=== PATIENT | male | born 1955 | race Caucasian/White ===

== ENCOUNTER 2019-10-20 11:32 | Outpatient (RCR) | payer BC ==
[~2019-10-20] VITALS: Ht 177.8 cm; Wt 100.9 kg
[2019-10-20 13:38] VITALS: BP 116/62
[2019-10-20] MEDS ORDERED: GUAI600T43 PO (13:46)
[2019-10-20] MEDS ORDERED: RT-ALBUINH IH (13:46)
[2019-10-20] MEDS ORDERED: DILT360C36 PO (13:46)
[2019-10-20] MEDS ORDERED: POTA10TA36 PO (13:46)
[2019-10-20] MEDS ORDERED: MONT10TA21 PO (13:46)
[2019-10-20] MEDS ORDERED: LOSA100T57 PO (13:46)
[2019-10-20] MEDS ORDERED: TIOT4MIS5 IH (13:46)
[2019-10-20] MEDS ORDERED: DOXA2TAB2 PO (13:46)
[2019-10-20] MEDS ORDERED: APIX2.5T PO (13:46)
[2019-10-20] MEDS ORDERED: FURO-124 PO (13:46)
[2019-10-20] MEDS ORDERED: BUDE10.2 IH (13:46)
[2019-10-20] MEDS ORDERED: FEXO-46 PO (13:46)
[2019-10-20] MEDS ORDERED: CYCL10TA9 PO (13:46)
[2019-10-20 14:03] LABS: BASOPHILS % (AUTO) 1 % (0-10); EOSINOPHILS % (AUTO) 0 % (0-10); HEMATOCRIT 42 % (40-54); HEMOGLOBIN 14.5 G/DL (13.3-17.7); LYMPHOCYTES # (AUTO) 1.3 X 10^3 (1.0-4.0); LYMPHOCYTES % (AUTO) 19 % (12-44); MEAN CORPUSCULAR HEMOGLOBIN 34 PG (25-34); MEAN CORPUSCULAR HGB CONC 35 G/DL (32-36); MEAN CORPUSCULAR VOLUME 98 FL (80-99); MEAN PLATELET VOLUME 9.4 FL (7.4-10.4); MONOCYTES # (AUTO) 0.9 X 10^3 (0.0-1.0); MONOCYTES % (AUTO) 13 % (0-12); NEUTROPHILS # (AUTO) 4.6 X 10^3 (1.8-7.8); NEUTROPHILS % (AUTO) 66 % (42-75); PLATELET COUNT 239 10^3/uL (130-400); RED CELL DISTRIBUTION WIDTH 15.5 % (10.0-14.5); WHITE BLOOD COUNT 6.9 10^3/uL (4.3-11.0)
[2019-10-20 14:10] LABS: CHLORIDE 105 MMOL/L (98-107); POTASSIUM 3.4 MMOL/L (3.6-5.0); SODIUM 140 MMOL/L (135-145)
[2019-10-20 14:11] LABS: CALCIUM 8.6 MG/DL (8.5-10.1)
[2019-10-20 14:12] LABS: GLUCOSE 91 MG/DL (70-105)
[2019-10-20 14:13] LABS: CARBON DIOXIDE 20 MMOL/L (21-32)
[2019-10-20 14:15] LABS: CREATININE SERUM 1.17 MG/DL (0.60-1.30)
[2019-10-20 14:16] LABS: BUN/CREATININE RATIO 15; GFR ESTIMATED > 60
== END 2019-10-20 14:27 | disposition home or self-care (01) ==
LOC: PREOP 11:32
PROVIDERS: ATTEND Otolaryngology Otolaryngology/Facial Plastic Surgery
DX: Z01.810 Encounter for preprocedural cardiovascular examination (principal); Z01.812 Encounter for preprocedural laboratory examination; Z01.818 Encounter for other preprocedural examination; Z11.59 Encounter for screening for other viral diseases; Z11.2 Encounter for screening for other bacterial diseases; J34.9 Unspecified disorder of nose and nasal sinuses
CPT/HCPCS: 36415; 80048; 85025; 87081; 87635; 93005

== ENCOUNTER 2019-10-24 07:24 | Day surgery (SDC) | payer BC ==
[~2019-10-24] VITALS: Ht 177 cm; Wt 100.9 kg
[2019-10-24] VITALS (10 sets, daily range): BP systolic 126–178; BP diastolic 71–93
[~2019-10-24 07:24] MED LIST: APIX2.5T PO; BUDE10.2 IH; CYCL10TA9 PO; DILT360C36 PO; DOXA2TAB2 PO; FEXO-46 PO; FURO-124 PO; GUAI600T43 PO; LOSA100T57 PO; MONT10TA21 PO; POTA10TA36 PO; RT-ALBUINH IH; TIOT4MIS5 IH
[2019-10-24] MEDS ORDERED: LACTATED RINGERS 1,000 ML IV PRN (07:26)
--- OUTSIDE RECORDS SUMMARY | 2019-10-24 07:30 | XMS REPORT ---
Author Author Ran Vines [facility] Address [address] [place], [place] [id number] Care Team Providers Care Regulatory Affairs Internship Name Role Phone Thomas Vines PCP Allergies and Adverse Reactions Name Reaction Notes No known drug allergy Plan of Treatment Not available. Medications Active Name Start Date Estimated Completion Date SIG Co mments losartan 100 mg oral tablet take 1 tablet (100 mg) by oral route once daily potassium chloride 10 mEq oral capsule, extended release take 1 capsule (10 meq) by oral route once daily with food cyclobenzaprine 10 mg oral tablet take 1 tablet by oral route every 6 to 8 hours as needed Eliquis 2.5 mg oral tablet take 1 tablet (2.5 mg) by oral route 2 times per day Singulair 10 mg oral tablet take 1 tablet (10 mg) by oral route once daily in the evening Lasix 40 mg oral tablet take 1 tablet (40 mg) by oral route once daily ProAir HFA 90 mcg/actuation inhalation HFA aerosol inhaler inhale 2 puffs (180 mcg) by inhalation route every 4-6 hours as needed Symbicort 160-4.5 mcg/actuation inhalation HFA aerosol inhaler inhale 2 puffs by inhalation route 2 times per day in the morning and evening diltiazem HCl 360 mg oral capsule,extended release 24 hr take 1 capsule (360 mg) by oral route once daily Spiriva Respimat 1.25 mcg/actuation inhalation mist inhale 2 puffs (2.5 mcg) by inhalation route once daily fexofenadine 180 mg oral tablet take 1 tablet (180 mg) by oral route once daily Mucinex 600 mg oral tablet extended release 12hr take 0.5 tablet (300 mg) by oral route every AM and noon as needed doxazosin 2 mg oral tablet take 1 tablet by oral route 2 times a day Problem List Description Status Onset Hypertension Active Pulmonary embolism Active COPD Active Vital Signs Date Time BP-Sys(mm[Hg] BP-Emily(mm[Hg]) HR(bpm) RR(rpm) Temp WT HT HC BMI BSA BMI Percentile O2 Sat(%) 05/08/2018 10:50:00 AM 126 mmHg 84 mmHg 95 bpm 20 rpm 98.2 F 210 lbs 70 in 30.1316 kg/m 2.169 m 93 % Social History Name Description Comments Tobacco Never smoker History of Procedures Not available. Results Summary Not available. History Of Immunizations Not available. History of Past Illness Name Date of Onset Comments Pulmonary embolism Hypertension COPD Colon Cancer Screening May 08 2018 10:54AM Payers Insurance Name Company Name Plan Name Plan Number Policy Number [employer] [id number]/ A History of Encounters Visit Date Visit Type Provider 05/08/2018 Office visit Thomas Vines MD
--- OUTSIDE RECORDS SUMMARY | 2019-10-24 07:30 | XMS REPORT ---
Author Author Ran Vines [facility] Address [address] [place], [place] [id number] Care Team Providers Care Breaker Oiler Name Role Phone Thomas Vines PCP Allergies [...] Colon Cancer Screening May 08 2018 10:54AM Colon Cancer Screening Jul 24 2018 2:55PM Payers Insurance Name Company Name Plan Name Plan Number Policy Number [employer] [id number]/ A History of Encounters Visit Date Visit Type Provider 05/08/2018 Office visit Thomas Vines MD
--- OUTSIDE RECORDS SUMMARY | 2019-10-24 07:30 | XMS REPORT ---
Author Ran [place] Address [address] [place], [place] [id number] Care Team Providers Care Dip Tube Assembler Machine Name Role Phone Sabrina Lizarraga PCP Allergies and Adverse Reactions Name Reaction [...] HC BMI BSA BMI Percentile O2 Sat(%) 09/05/2018 8:11:00 AM 136 mmHg 76 mmHg 94 bpm 18 rpm 98.4 F 213 lbs 70 in 30.562 kg/m 2.1844 m 91 % 05/08/2018 10:50:00 AM 126 mmHg 84 mmHg 95 bpm 20 rpm 98.2 F 210 lbs 70 in 30.13 kg/m2 2.17 m2 93 % Social History Name Description Comments Tobacco Never smoker Alcohol Use - Occasional History of Procedures Not available. Results Summary Not available. History Of Immunizations Not available. History of Past Illness Name Date of Onset Comments Pulmonary embolism Hypertension COPD Colon Cancer Screening May 08 2018 10:54AM Colon Cancer Screening Jul 24 2018 2:55PM Dyspnea on minimal exertion Sep 05 2018 8:16AM Tachycardia Sep 05 2018 8:16AM Productive cough Sep 05 2018 8:16AM Payers Insurance Name Company Name Plan Name Plan Number Policy Number [employer] Group [id number]/ A History of Encounters Visit Date Visit Type Provider 09/05/2018 Office visit Sabrina Lizarraga LIVE SOURCE OPERATOR 07/26/2018 Surgery Thomas Vines MD 05/08/2018 Office visit Thomas Vines MD
--- NOTE | 2019-10-24 07:43 | Progress Note-Pre Operative ---
Pre-Operative Progress Note H&P Reviewed The H&P was reviewed, patient examined and no changes noted. Date Seen by Provider: Oct 24, 2019 Time Seen by Provider: 07: Date H&P Reviewed: Oct 24, 2019 Time H&P Reviewed: 07:30 Pre-Operative Diagnosis: Nasopharyngeal MASS KARINE CLARK MD Oct 24, 2019 07:43
[2019-10-24] MEDS ORDERED: fentaNYL INJECTION 100 MCG/2 ML AMP ONE (07:56)
[2019-10-24] MEDS ORDERED: LIDOCAINE PF 2% 5 ML (XYLOCAINE) VIAL ONE (07:56)
[2019-10-24] MEDS ORDERED: MIDAZOLAM 2 MG/2 ML (VERSED) VIAL ONE (07:56)
[2019-10-24] MEDS ORDERED: proPOfol 200 MG/20 ML (DIPRIVAN) VIAL IV ONE (07:56)
[2019-10-24] MEDS ORDERED: SUCCINYLCHOLINE INJ 100 MG/5 ML SYR ONE (07:56)
[2019-10-24] MEDS ORDERED: ONDANSETRON 4 MG/2 ML (SDV) Z0FRAN ONE (07:56)
[2019-10-24] MEDS ORDERED: LACTATED RINGERS 1,000 ML IV ONE (07:56)
[2019-10-24] MEDS ORDERED: MUPIROCIN 2% OINT 22 GM (BACTROBAN) TUBE ONE (08:00)
[2019-10-24] MEDS ORDERED: LIDOCAINE 1% INJ 20 ML 20 ML VIAL ONE (08:01)
--- NOTE | 2019-10-24 08:58 | Progress Note-Post Operative ---
Post-Operative Progess Note Surgeon (s)/Correctional Officer Lieutenant (s) Surgeon KARINE CLARK MD Correctional Officer Lieutenant n/a Pre-Operative Diagnosis Nasopharyngeal MASS Post-Operative Diagnosis same Post-Op Procedure Note Date of Procedure: Oct 24, 2019 Name of Procedure Performed: Removal of Naspharyngeal Mass Description & Findings Description and Findings: n/a Anesthesia Type get Estimated Blood Loss minimal Packing none. Specimen(s) collected/removed nasopharyngeal mass to pathology KARINE CLARK MD Oct 24, 2019 08:58
[2019-10-24] MEDS ORDERED: HYDROcodone/APAP 5 MG/325 MG (LORTAB) TAB PO PRN (09:00)
[2019-10-24] MEDS ORDERED: ACETAMINOPHEN 325 MG TABLET PO PRN (09:00)
[2019-10-24] MEDS ORDERED: PROMETHAZINE INJ 25 MG/ML (PHENERGAN) AMP IV PRN (09:00)
--- NOTE | 2019-10-24 09:10 | Anesthesia-General Post-Op ---
General Patient Condition Mental Status/LOC: Same as Preop Cardiovascular: Satisfactory Nausea/Vomiting: Absent Respiratory: Satisfactory Pain: Controlled Complications: Absent Post Op Complications Complications None Follow Up Care/Instructions Patient Instructions None needed. Anesthesia/Patient Condition Patient Condition Patient is doing well, no complaints, stable vital signs, no apparent adverse anesthesia problems. No complications reported per nursing. JOAN RUBIN CRNA Oct 24, 2019 09:10
[2019-10-24] MEDS ORDERED: MEPERIDINE (DEMEROL) INJ 50 MG/ML IVP ONE (09:15)
[2019-10-24] MEDS ORDERED: ONDANSETRON 4 MG/2 ML (SDV) Z0FRAN IVP PRN (09:15)
[2019-10-24] MEDS ORDERED: morphine INJ 10 MG/ML 1ML (SYR OR VIAL) IVP ONE (09:15)
[2019-10-24] MEDS ORDERED: HYDR-83 PO (09:21)
== END 2019-10-24 10:50 | disposition home or self-care (01) ==
LOC: SDC 07:24
PROVIDERS: ATTEND Otolaryngology Otolaryngology/Facial Plastic Surgery
DX: J39.2 Other diseases of pharynx (principal); J45.909 Unspecified asthma, uncomplicated; J98.6 Disorders of diaphragm; G47.33 Obstructive sleep apnea (adult) (pediatric); I10 Essential (primary) hypertension; Z79.01 Long term (current) use of anticoagulants; Z79.51 Long term (current) use of inhaled steroids; Z79.899 Other long term (current) drug therapy; Z86.718 Personal history of other venous thrombosis and embolism; Z80.9 Family history of malignant neoplasm, unspecified; Z82.49 Family history of ischemic heart disease and other diseases of the circulatory system